=== PATIENT | female | born 1935 | race Caucasian/White ===

== ENCOUNTER 2019-04-30 15:26 | Emergency (ER) | payer MEDICARE ==
[~2019-04-30] VITALS: Ht 165.1 cm; Wt 54.0 kg
[~2019-04-30 15:26] MED LIST: ASPI-1009 PO; CARV-50 PO; LISI-600 PO; RISE1TAB PO
[2019-04-30] MEDS ORDERED: ondansetron/PF 4mg/2ml inj IV ONE (16:15)
[2019-04-30] MEDS ORDERED: normal saline 1000ML IV soln IVB ONE (16:15)
--- NOTE | 2019-04-30 16:25 | NUR ---
Pt. To CT
[2019-04-30 16:33] LABS: BASOPHILS % (AUTO) 0.3 % (0-1); EOSINOPHILS % (AUTO) 0.3 % (0-6); HEMATOCRIT 37.7 % (35.0-45.0); HEMOGLOBIN 12.8 g/dl (12.0-16.0); LYMPHOCYTES # (AUTO) 0.6 X10'3 (1.1-4.8); LYMPHOCYTES % (AUTO) 8.2 % (21-51); MEAN CORPUSCULAR HEMOGLOBIN 34.3 PG (27.0-31.0); MEAN CORPUSCULAR HGB CONC 33.8 g/dL (33.0-36.5); MEAN CORPUSCULAR VOLUME 101.3 FL (78-98); MEAN PLATELET VOLUME 8.5 FL (7.4-10.4); MONOCYTES # (AUTO) 0.4 X10'3 (0-0.9); MONOCYTES % (AUTO) 4.7 % (2-12); NEUTROPHILS # (AUTO) 6.5 X10'3 (1.8-7.7); NEUTROPHILS % (AUTO) 86.5 % (42-75); PLATELET COUNT 189 X10'3 (140-440); RED BLOOD COUNT 3.73 X10'6 (4.20-5.60); RED CELL DISTRIBUTION WIDTH 13.7 % (11.5-14.5); WHITE BLOOD COUNT 7.6 X10'3 (4.5-11.0)
--- NOTE | 2019-04-30 16:40 | NUR ---
Pt. back from CT
[2019-04-30 16:41] LABS: ALANINE AMINOTRANSFERASE 24 U/L (12-78); ALBUMIN 3.4 G/DL (3.4-5.0); ALBUMIN/GLOBULIN RATIO 0.9 (1.1-1.5); ALKALINE PHOSPHATASE 64 IU/L (46-116); ANION GAP 8 (8-16); ASPARTATE AMINO TRANSFERASE 15 U/L (10-37); BILIRUBIN,TOTAL 1.5 MG/DL (0.1-1.0); BLOOD UREA NITROGEN 24 MG/DL (7-18); BUN/CREATININE RATIO 36.4 (6.6-38.0); CALCIUM 9.2 MG/DL (8.5-10.1); CHLORIDE 110 MMOL/L (99-107); CREATININE 0.66 MG/DL (0.40-0.90); GLUCOSE 137 MG/DL (70-104); POTASSIUM 4.2 MMOL/L (3.5-5.1); SODIUM 146 MMOL/L (135-145); TOTAL CARBON DIOXIDE 27.8 MMOL/L (24-32); TOTAL PROTEIN 7.3 G/DL (6.4-8.2); eGFR 85 ML/MIN
[2019-04-30 16:56] LABS: LIPASE 103 U/L (73-393)
[2019-04-30 18:50] VITALS: BP 150/65
[2019-04-30] MEDS ORDERED: ONDA4TAB12 PO (19:19)
== END 2019-04-30 19:38 | disposition home or self-care (01) ==
LOC: ER 15:27
DX: R11.2 Nausea with vomiting, unspecified (principal); R07.89 Other chest pain; R94.8 Abnormal results of function studies of other organs and systems; E78.00 Pure hypercholesterolemia, unspecified; I10 Essential (primary) hypertension; F10.99 Alcohol use, unspecified with unspecified alcohol-induced disorder; Z95.0 Presence of cardiac pacemaker; Z79.82 Long term (current) use of aspirin; Z79.899 Other long term (current) drug therapy; Y90.9 Presence of alcohol in blood, level not specified
CPT/HCPCS: 36415; 71045; 74176; 80053; 83690; 84484; 85025; 93005; 96361; 96374; 99284; J2405; J7030; 96375

== ENCOUNTER 2022-05-19 07:54 | Inpatient (IN) | payer MEDICARE ==
[~2022-05-19] VITALS: Ht 162.6 cm; Wt 59.1 kg
[~2022-05-19 07:54] MED LIST changes: -LISI-600 PO; +LISI20TA28 PO; +ONDA4TAB12 PO
[2022-05-19 08:34] LABS: BASOPHILS # (AUTO) 0.1 X10'3 (0-0.2); BASOPHILS % (AUTO) 1.2 % (0-1); EOSINOPHILS # (AUTO) 0.2 X10'3 (0-0.9); EOSINOPHILS % (AUTO) 4.4 % (0-6); HEMATOCRIT 35.8 % (35.0-45.0); HEMOGLOBIN 11.9 g/dl (12.0-16.0); LYMPHOCYTES # (AUTO) 1.2 X10'3 (1.1-4.8); LYMPHOCYTES % (AUTO) 22.4 % (21-51); MEAN CORPUSCULAR HEMOGLOBIN 34.7 PG (27.0-31.0); MEAN CORPUSCULAR HGB CONC 33.2 g/dL (33.0-36.5); MEAN CORPUSCULAR VOLUME 104.4 FL (78-98); MEAN PLATELET VOLUME 8.2 FL (7.4-10.4); MONOCYTES # (AUTO) 0.7 X10'3 (0-0.9); MONOCYTES % (AUTO) 12.7 % (2-12); NEUTROPHILS # (AUTO) 3.3 X10'3 (1.8-7.7); NEUTROPHILS % (AUTO) 59.3 % (42-75); PLATELET COUNT 200 X10'3 (140-440); RED BLOOD COUNT 3.42 X10'6 (4.20-5.60); WHITE BLOOD COUNT 5.5 X10'3 (4.5-11.0)
[2022-05-19 08:41] LABS: APTT 27 SECONDS (22-32)
[2022-05-19 08:44] LABS: D-DIMER 2.22 MG/L FEU (0-0.50)
[2022-05-19 08:50] LABS: ALANINE AMINOTRANSFERASE 24 U/L (12-78); ALBUMIN 2.5 G/DL (3.4-5.0); ALBUMIN/GLOBULIN RATIO 0.8 (1.1-1.5); ALKALINE PHOSPHATASE 122 IU/L (46-116); ANION GAP 5 (8-16); ASPARTATE AMINO TRANSFERASE 23 U/L (10-37); BILIRUBIN,TOTAL 1.1 MG/DL (0.1-1.0); BLOOD UREA NITROGEN 20 MG/DL (7-18); BUN/CREATININE RATIO 33.9 (6.6-38.0); CALCIUM 8.3 MG/DL (8.5-10.1); CHLORIDE 109 MMOL/L (99-107); CREATININE 0.59 MG/DL (0.40-0.90); GLUCOSE 109 MG/DL (70-104); POTASSIUM 3.4 MMOL/L (3.5-5.1); SODIUM 142 MMOL/L (135-145); TOTAL CARBON DIOXIDE 28.2 MMOL/L (24-32); TOTAL PROTEIN 5.7 G/DL (6.4-8.2); eGFR > 90 ML/MIN
[2022-05-19] MEDS ORDERED: CefTRIAXone 2gm/D5W 50ml BAG 50 ML IV ONE (09:30)
[2022-05-19] MEDS ORDERED: iohexol 350MG/ML 100ml bottle IV ONE (09:38)
[2022-05-19] MEDS ORDERED: furosemide 10 MG/1 ML 10ml inj IV ONE (10:20)
[2022-05-19] MEDS ORDERED: aspirin 81mg tab.chew PO ONE (10:20)
[2022-05-19] MEDS ORDERED: OSC500T PO (10:35)
[2022-05-19] MEDS ORDERED: LACT1CAP65 PO (10:35)
[2022-05-19] MEDS ORDERED: APIX2.5T PO (10:35)
[2022-05-19] MEDS ORDERED: potassium Cl 20 mEq SR tablet PO STA (10:51)
[2022-05-19] MEDS ORDERED: potassium Cl 20 mEq SR tablet PO PRN ×2 (12:55)
[2022-05-19] MEDS ORDERED: magnesium Cl slow-release 64mg tablet PO PRN (12:55)
[2022-05-19] MEDS ORDERED: potassium Cl 40MEQ/1/2NS 520ml 520 ML IV PRN (12:55)
[2022-05-19] MEDS ORDERED: mag hydrox/Alum hydrox/simeth 30ml oral suspension PO PRN (12:55)
[2022-05-19] MEDS ORDERED: HYDROcodone/acetaminophen 5mg/325mg tablet PO PRN (12:55)
[2022-05-19] MEDS ORDERED: ondansetron/PF 4mg/2ml inj IV PRN (12:55)
[2022-05-19] MEDS ORDERED: magnesium 4gm in 100ml NS 100 ML IV PRN (12:55)
[2022-05-19] MEDS ORDERED: ipratropium/albuterol 3ml nebule NEB PRN (12:55)
[2022-05-19] MEDS ORDERED: PERFLUTREN PROTEIN-A MICROSPHR (Optison) 0.22 MG/ML 3ML VIAL IV ONE (12:55)
[2022-05-19] MEDS ORDERED: magnesium hydroxide 30ml (MOM) UD suspension PO PRN (12:55)
[2022-05-19] MEDS ORDERED: acetaminophen 325mg tablet PO PRN (12:55)
[2022-05-19] MEDS: ipratropium/albuterol 3ml nebule NEB SCH ×2 (15:00→20:09)
[2022-05-19] MEDS ORDERED: FURO20TA4 PO (15:02)
[2022-05-19 17:37] LABS: ALBUMIN 2.4 G/DL (3.4-5.0); ANION GAP 6 (8-16); BLOOD UREA NITROGEN 16 MG/DL (7-18); BUN/CREATININE RATIO 22.2 (6.6-38.0); CALCIUM 8.2 MG/DL (8.5-10.1); CHLORIDE 108 MMOL/L (99-107); CREATININE 0.72 MG/DL (0.40-0.90); GLUCOSE 138 MG/DL (70-104); POTASSIUM 3.6 MMOL/L (3.5-5.1); SODIUM 145 MMOL/L (135-145); TOTAL CARBON DIOXIDE 31.5 MMOL/L (24-32); eGFR 77 ML/MIN
[2022-05-19] MEDS: calcium carbonate 500mg tablet PO SCH (19:16)
[2022-05-19] MEDS: apixaban 2.5mg tablet PO SCH (19:16)
[2022-05-19] MEDS: docusate sod 100mg capsule PO SCH (19:16)
[2022-05-19] MEDS: carVEDilol 12.5mg tablet PO SCH (19:16)
[2022-05-20] MEDS: ipratropium/albuterol 3ml nebule NEB SCH ×4 (03:00→21:00)
[2022-05-20 04:00] VITALS: BP 143/86
[2022-05-20 07:00] VITALS: BP 141/75
[2022-05-20 07:18] LABS: BASOPHILS # (AUTO) 0.1 X10'3 (0-0.2); BASOPHILS % (AUTO) 1.1 % (0-1); EOSINOPHILS # (AUTO) 0.2 X10'3 (0-0.9); EOSINOPHILS % (AUTO) 3.4 % (0-6); HEMATOCRIT 36.4 % (35.0-45.0); LYMPHOCYTES # (AUTO) 1.5 X10'3 (1.1-4.8); LYMPHOCYTES % (AUTO) 22.4 % (21-51); MEAN CORPUSCULAR HEMOGLOBIN 35.1 PG (27.0-31.0); MEAN CORPUSCULAR HGB CONC 32.9 g/dL (33.0-36.5); MEAN CORPUSCULAR VOLUME 106.8 FL (78-98); MEAN PLATELET VOLUME 8.8 FL (7.4-10.4); MONOCYTES # (AUTO) 0.8 X10'3 (0-0.9); MONOCYTES % (AUTO) 12.2 % (2-12); NEUTROPHILS % (AUTO) 60.9 % (42-75); PLATELET COUNT 180 X10'3 (140-440); RED BLOOD COUNT 3.41 X10'6 (4.20-5.60); RED CELL DISTRIBUTION WIDTH 15.5 % (11.5-14.5); WHITE BLOOD COUNT 6.6 X10'3 (4.5-11.0)
[2022-05-20] MEDS ORDERED: lisinopril 10 MG tablet PO SCH (08:00)
[2022-05-20] MEDS: docusate sod 100mg capsule PO SCH ×2 (08:00→19:41)
[2022-05-20] MEDS: lactobacillus rhamnosus 10,000 MMU CELLS/CAPSULE PO SCH (08:19)
[2022-05-20] MEDS: carVEDilol 12.5mg tablet PO SCH ×2 (08:19→19:41)
[2022-05-20] MEDS: calcium carbonate 500mg tablet PO SCH ×2 (08:20→19:41)
[2022-05-20] MEDS: apixaban 2.5mg tablet PO SCH ×2 (08:20→19:42)
[2022-05-20] MEDS: methylPREDNISolone sod succ 125mg/2ml vial IV SCH (08:21)
[2022-05-20] MEDS: furosemide 10 MG/1 ML 10ml inj IV SCH (08:21)
[2022-05-20 09:20] LABS: ALANINE AMINOTRANSFERASE 17 U/L (12-78); ALBUMIN 2.6 G/DL (3.4-5.0); ALBUMIN/GLOBULIN RATIO 0.8 (1.1-1.5); ALKALINE PHOSPHATASE 123 IU/L (46-116); ANION GAP 8 (8-16); ASPARTATE AMINO TRANSFERASE 28 U/L (10-37); BILIRUBIN,TOTAL 1.2 MG/DL (0.1-1.0); BLOOD UREA NITROGEN 17 MG/DL (7-18); BUN/CREATININE RATIO 29.8 (6.6-38.0); CALCIUM 8.6 MG/DL (8.5-10.1); CHLORIDE 107 MMOL/L (99-107); CREATININE 0.57 MG/DL (0.40-0.90); GLUCOSE 88 MG/DL (70-104); MAGNESIUM 1.8 MG/DL (1.5-2.4); POTASSIUM 3.7 MMOL/L (3.5-5.1); SODIUM 143 MMOL/L (135-145); TOTAL CARBON DIOXIDE 27.7 MMOL/L (24-32); TOTAL PROTEIN 5.7 G/DL (6.4-8.2); eGFR > 90 ML/MIN
[2022-05-20 11:00] VITALS: BP 124/57
[2022-05-20 15:00] VITALS: BP 130/64
[2022-05-20 18:00] VITALS: BP 136/69
[2022-05-21 01:55] VITALS: BP 143/67
[2022-05-21] MEDS: ipratropium/albuterol 3ml nebule NEB SCH ×2 (03:00→09:00)
[2022-05-21 06:59] LABS: BASOPHILS % (AUTO) 0 % (0-1); EOSINOPHILS % (AUTO) 0 % (0-6); HEMATOCRIT 34.7 % (35.0-45.0); HEMOGLOBIN 11.6 g/dl (12.0-16.0); LYMPHOCYTES % (AUTO) 9.8 % (21-51); MEAN CORPUSCULAR HEMOGLOBIN 34.8 PG (27.0-31.0); MEAN CORPUSCULAR HGB CONC 33.5 g/dL (33.0-36.5); MEAN PLATELET VOLUME 8.3 FL (7.4-10.4); MONOCYTES % (AUTO) 9.9 % (2-12); NEUTROPHILS # (AUTO) 7.8 X10'3 (1.8-7.7); NEUTROPHILS % (AUTO) 80.3 % (42-75); PLATELET COUNT 201 X10'3 (140-440); RED BLOOD COUNT 3.34 X10'6 (4.20-5.60); RED CELL DISTRIBUTION WIDTH 14.9 % (11.5-14.5); WHITE BLOOD COUNT 9.7 X10'3 (4.5-11.0)
[2022-05-21 07:20] VITALS: BP 132/58
[2022-05-21 08:00] LABS: ALANINE AMINOTRANSFERASE 19 U/L (12-78); ALBUMIN 2.4 G/DL (3.4-5.0); ALBUMIN/GLOBULIN RATIO 0.8 (1.1-1.5); ALKALINE PHOSPHATASE 121 IU/L (46-116); ANION GAP 6 (8-16); ASPARTATE AMINO TRANSFERASE 24 U/L (10-37); BILIRUBIN,TOTAL 0.8 MG/DL (0.1-1.0); BLOOD UREA NITROGEN 26 MG/DL (7-18); BUN/CREATININE RATIO 46.4 (6.6-38.0); CALCIUM 8.6 MG/DL (8.5-10.1); CHLORIDE 106 MMOL/L (99-107); CREATININE 0.56 MG/DL (0.40-0.90); GLUCOSE 105 MG/DL (70-104); MAGNESIUM 1.9 MG/DL (1.5-2.4); POTASSIUM 3.7 MMOL/L (3.5-5.1); SODIUM 142 MMOL/L (135-145); TOTAL CARBON DIOXIDE 29.8 MMOL/L (24-32); TOTAL PROTEIN 5.4 G/DL (6.4-8.2); eGFR > 90 ML/MIN
[2022-05-21] MEDS: furosemide 10 MG/1 ML 10ml inj IV SCH (08:08)
[2022-05-21] MEDS: methylPREDNISolone sod succ 125mg/2ml vial IV SCH (08:08)
[2022-05-21] MEDS: carVEDilol 12.5mg tablet PO SCH (08:09)
[2022-05-21] MEDS: docusate sod 100mg capsule PO SCH (08:09)
[2022-05-21] MEDS: calcium carbonate 500mg tablet PO SCH (08:09)
[2022-05-21] MEDS: lactobacillus rhamnosus 10,000 MMU CELLS/CAPSULE PO SCH (08:09)
[2022-05-21] MEDS: apixaban 2.5mg tablet PO SCH (08:09)
[2022-05-21 11:26] VITALS: BP 136/70
[2022-05-21] MEDS ORDERED: FURO20TA4 PO (11:39)
[2022-05-21] MEDS ORDERED: PRED10TA23 PO (11:39)
[2022-05-21] MEDS ORDERED: SACU1TAB PO (12:35)
[2022-05-21] MEDS ORDERED: sacubitril/valsartan 24mg-26mg tablet PO SCH (20:00)
== END 2022-05-21 13:12 | disposition home health service (06) | DRG 189 ==
LOC: ER 07:55 → ED HOLD 13:03 → PCU 3S 05-20 04:00
PROVIDERS: ADMIT Family Medicine; ATTEND Family Medicine
PROC: B32T1ZZ Computerized Tomography (CT Scan) of Left Pulmonary Artery using Low Osmolar Contrast (ICD-10-PCS; 2022-05-19)
PROC: B3201ZZ Computerized Tomography (CT Scan) of Thoracic Aorta using Low Osmolar Contrast (ICD-10-PCS; 2022-05-19)
PROC: B32S1ZZ Computerized Tomography (CT Scan) of Right Pulmonary Artery using Low Osmolar Contrast (ICD-10-PCS; 2022-05-19)
PROC: BW211ZZ Computerized Tomography (CT Scan) of Abdomen and Pelvis using Low Osmolar Contrast (ICD-10-PCS; 2022-05-19)
PROC: 4B02XTZ Measurement of Cardiac Defibrillator, External Approach (ICD-10-PCS; principal; 2022-05-21)
DX: J96.01 Acute respiratory failure with hypoxia (principal); I50.23 Acute on chronic systolic (congestive) heart failure; J44.0 Chronic obstructive pulmonary disease with (acute) lower respiratory infection; J44.1 Chronic obstructive pulmonary disease with (acute) exacerbation; I87.1 Compression of vein; R18.8 Other ascites; I11.0 Hypertensive heart disease with heart failure; Z20.822 Contact with and (suspected) exposure to COVID-19; E78.00 Pure hypercholesterolemia, unspecified; D53.9 Nutritional anemia, unspecified; I48.0 Paroxysmal atrial fibrillation; R55 Syncope and collapse; R29.6 Repeated falls; Z79.01 Long term (current) use of anticoagulants; Z79.899 Other long term (current) drug therapy; Z82.49 Family history of ischemic heart disease and other diseases of the circulatory system; Z87.891 Personal history of nicotine dependence; Z90.49 Acquired absence of other specified parts of digestive tract; Z90.710 Acquired absence of both cervix and uterus; Z91.81 History of falling; Z95.810 Presence of automatic (implantable) cardiac defibrillator
CPT/HCPCS: 36415; 71045; 71275; 72220; 74174; 80048; 80053; 83735; 83880; 84145; 84484; 85025; 85379; 85610; 85730; 87081; 87502; 87503; 87635; 93005; 93306; 93880; 94640; 94760; 96365; 96366; 96375; 97110; 97161; 97530; 99285; C9803; G0378; J0696; J1940; J2930; J3490; Q9967